=== PATIENT | male | born 1980 | race African-American/Black ===

== ENCOUNTER 2017-04-21 11:46 | Emergency (ER) | payer BC ==
[~2017-04-21] VITALS: Ht 177.8 cm; Wt 76.7 kg
[2017-04-21 12:15] VITALS: BP 123/73
[2017-04-21] MEDS ORDERED: IBUP-1027 PO (12:24)
--- NOTE | 2017-04-21 12:24 | PHYS DOC ---
Past Medical History Past Medical History: Diabetes-Type I Past Surgical History: No Surgical History Adult General Chief Complaint Chief Complaint: OTHER COMPLAINTS HPI HPI This is a pleasant 37-year-old -[place] male in known history of type I diabetes who admits he took his insulin last night but did not eat an adequate meal. EMS responded this morning to the home when he was hypoglycemic in an attempt to give him an IV bolus of D50 it accidentally infiltrated into the tissue of the tibial fossa on the right. EMS requested that the patient go to the emergency department for an evaluation of his soft tissue. he denies any numbness and tingling distal to the injury does complain of slight pain to the anterior portion of the anterior tibial fossa on the right that is actually improved patient denies any fevers chills or other symptoms. Review of Systems Review of Systems Constitutional: Denies fever or chills [] Respiratory: Denies cough or shortness of breath [] Cardiovascular: No additional information not addressed in HPI [] Musculoskeletal: Denies back pain or joint pain complains of slight localized swelling and pain to the anterior portion of the right forearm] Integument: Denies rash or skin lesions [] Neurologic: Denies headache, focal weakness or sensory changes [] All other systems were reviewed and found to be within normal limits, except as documented in this note. Allergies Allergies Allergies Coded Allergies Type Severity Reaction Last Updated Verified No Known Drug Allergies 04/21/17 No Physical Exam Physical Exam Vital signs recorded on the chart within normal limits Constitutional: Well developed, well nourished, no acute distress, non-toxic appearance. [] Cardiovascular:Heart rate regular rhythm, no murmur [] Lungs & Thorax: Bilateral breath sounds clear to auscultation [] Skin: Patient has brisk capillary refill +2, brisk peripheral pulses at the radial and ulnar artery, she has slight soft tissue swelling over the area of the antecubital fossa on the right with minimal soft tissue swelling no obvious signs of fluctuance or sialitis.: Extremities: No tenderness, no cyanosis, no clubbing, ROM intact, no edema. [] Neurologic: Alert and oriented X 3, normal motor function, normal sensory function, no focal deficits noted. [] Current Patient Data Lab Values Laboratory Tests Test 04/21/17 12:10 Glucose (Fingerstick) 268 mg/dL (70-99) H EKG EKG [] Radiology/Procedures Radiology/Procedures [] Course & Med Decision Making Course & Med Decision Making Pertinent Labs and Imaging studies reviewed. (See chart for details) []Presents with slight D50 fluid infiltration into the soft tissue of the right forearm. There is no obvious signs of soft tissue compartment syndrome, there is no evidence of soft tissue trauma damage or localized abscess. After consulting with pharmacy she denied both believe that infiltrate with D50 will not cause any soft tissue trauma other than localized pain. His pain is already improved. I will encourage him to use Tylenol Motrin for his discomfort. Impression: Soft tissue trauma from D50 infiltrate Dragon Disclaimer Dragon Disclaimer This electronic medical record was generated, in whole or in part, using a voice recognition dictation system. Departure Departure Impression: Primary Impression: Nontraumatic hematoma of soft tissue Disposition: HOME, SELF-CARE Patient Instructions: Contusion Additional Instructions: discharge: I've spoken with the patient and/or caregivers. I've explained the patient's condition, diagnosis and treatment plan based on information available to me at this time. I've answered the patient's and/or caregivers questions and addressed any concerns. The patient and/or caregivers have a good understanding the patient's diagnosis, condition and treatment plan as can be expected at this point. Vital signs have been stabilized. The patient's condition is stable for discharge from the emergency department. The patient will pursue further outpatient evaluation with her primary care provider or other designated consulting physician as outlined in the discharge instructions. Patient and/or caregivers are agreeable to this plan of care and follow-up instructions have been explained in detail. The patient and/or caregivers have received these instructions in written format and expressed understanding of these discharge instructions. The patient and her caregivers are aware that if any significant change in condition or worsening of symptoms should prompt him to immediately return to this of the closest emergency department. If an emergent department is not readily available I would encourage him to call 911. Scripts Ibuprofen (IBUPROFEN) 400 Mg Tablet 400 MG PO PRN Q6HRS Y for INFLAMMATION for 10 Days, TAB Prov: JOSESITO LATIF MD 04/21/17 JOSESITO LATIF MD Apr 21, 2017 12:24
== END 2017-04-21 12:30 | disposition home or self-care (01) ==
LOC: ER 11:46
DX: M79.81 Nontraumatic hematoma of soft tissue (principal); E10.9 Type 1 diabetes mellitus without complications; Z79.4 Long term (current) use of insulin
CPT/HCPCS: 82962; 99282; 99283

== ENCOUNTER 2017-07-27 08:14 | Emergency (ER) | payer BC ==
[2017-07-27] MEDS ORDERED: IV NORMAL SALINE 1000ML BAG 1,000 ML IV (08:30)
[2017-07-27] MEDS: ACETAMINOPHEN 325 MG TABLET. PO (08:32)
[2017-07-27 09:16] LABS: BILIRUBIN,URINE NEGATIVE (NEG); CLARITY,URINE CLEAR; GLUCOSE,URINE NEGATIVE (NEG); NITRITE,URINE NEGATIVE (NEG); PROTEIN,URINE NEGATIVE (NEG-TRACE)
[2017-07-27 09:34] LABS: COLOR,URINE YELLOW; SQUAMOUS EPITHELIAL CELL,UR MOD /LPF
[2017-07-27 09:35] LABS: BACTERIA,URINE FEW /HPF (0-FEW); RBC,URINE OCC /HPF (0-2)
[2017-07-27 11:07] LABS: ADD MAN DIFF? NO
[2017-07-27 11:10] LABS: BASO % 1 % (0-3); EOS # 0.1 x10^3/uL (0.0-0.7); EOS % 2 % (0-3); HEMATOCRIT 46.2 % (39.0-53.0); HEMOGLOBIN 15.6 g/dL (13.0-17.5); LYMPH # 0.6 x10^3/uL (1.0-4.8); LYMPH % 11 % (24-48); MEAN CORPUSCULAR HEMOGLOBIN 31 pg (25-35); MEAN CORPUSCULAR HGB CONC 34 g/dL (31-37); MEAN CORPUSCULAR VOLUME 91 fL (79-100); MONO # 0.6 x10^3/uL (0.0-1.1); MONO % 12 % (0-9); NEUT % 74 % (31-73); PLATELET COUNT 187 x10^3/uL (140-400); RED BLOOD COUNT 5.11 x10^6/uL (4.30-5.70); RED CELL DISTRIBUTION WIDTH 14.3 % (11.5-14.5); WHITE BLOOD COUNT 5.4 x10^3/uL (4.0-11.0)
[2017-07-27 11:20] LABS: ANION GAP 10 (6-14); BLOOD UREA NITROGEN 16 mg/dL (8-26); CALCIUM 9.7 mg/dL (8.5-10.1); CARBON DIOXIDE 25 mmol/L (21-32); CHLORIDE 96 mmol/L (98-107); CREATININE 1.1 mg/dL (0.7-1.3); GFR 91.6; GLUCOSE 278 mg/dL (70-99); POTASSIUM 4.6 mmol/L (3.5-5.1); SODIUM 131 mmol/L (136-145)
[2017-07-27 11:25] LABS: ALBUMIN 3.4 g/dL (3.4-5.0); ALK PHOS 448 U/L (46-116); ALT (SGPT) 80 U/L (16-63); AST (SGOT) 76 U/L (15-37); DIRECT BILIRUBIN 0.3 mg/dL (0.0-0.2); LIPASE 93 U/L (73-393); TOTAL BILIRUBIN 0.7 mg/dL (0.2-1.0); TOTAL PROTEIN 9.3 g/dL (6.4-8.2)
[2017-07-27 11:27] LABS: TROPONINI < 0.017 ng/mL (0.000-0.055)
[2017-07-27 12:12] LABS: POC GLUCOSE 73 mg/dL (70-99)
[2017-07-27 12:12] LABS: POC GLUCOSE 145 mg/dL (70-99)
== END 2017-07-27 12:02 | disposition home or self-care (01) ==
LOC: ER 08:14
DX: E10.649 Type 1 diabetes mellitus with hypoglycemia without coma (principal); Z79.4 Long term (current) use of insulin
CPT/HCPCS: 36415; 70450; 80048; 80076; 81001; 82962; 83690; 84484; 85025; 87086; 99285-25

== ENCOUNTER 2018-07-10 09:35 | Emergency (ER) | payer SELFPAY ==
[~2018-07-10] VITALS: Ht 177.8 cm; Wt 77.1 kg
[~2018-07-10 09:35] MED LIST: IBUP-1027 PO
[2018-07-10] MEDS ORDERED: IBUPROFEN 600 MG TABLET. PO ONE (10:15)
[2018-07-10 10:20] LABS: BASO % 0 % (0-3); EOS # 0.8 x10^3/uL (0.0-0.7); EOS % 12 % (0-3); HEMATOCRIT 43.2 % (39.0-53.0); HEMOGLOBIN 14.2 g/dL (13.0-17.5); LYMPH # 1.7 x10^3/uL (1.0-4.8); LYMPH % 25 % (24-48); MEAN CORPUSCULAR HEMOGLOBIN 31 pg (25-35); MEAN CORPUSCULAR HGB CONC 33 g/dL (31-37); MEAN CORPUSCULAR VOLUME 95 fL (79-100); MONO # 0.6 x10^3/uL (0.0-1.1); MONO % 9 % (0-9); NEUT # 3.6 x10^3uL (1.8-7.7); NEUT % 54 % (31-73); PLATELET COUNT 139 x10^3/uL (140-400); RED BLOOD COUNT 4.58 x10^6/uL (4.30-5.70); RED CELL DISTRIBUTION WIDTH 14.1 % (11.5-14.5); WHITE BLOOD COUNT 6.7 x10^3/uL (4.0-11.0)
[2018-07-10 10:24] LABS: BILIRUBIN,URINE NEGATIVE (NEG); CLARITY,URINE CLEAR; COLOR,URINE YELLOW; NITRITE,URINE NEGATIVE (NEG); PROTEIN,URINE NEGATIVE (NEG-TRACE); UROBILINOGEN,URINE 0.2 mg/dL (0.2 mg/dL)
[2018-07-10 10:50] LABS: SQUAMOUS EPITHELIAL CELL,UR FEW /LPF
[2018-07-10 10:51] LABS: BACTERIA,URINE FEW /HPF (0-FEW); RBC,URINE OCC /HPF (0-2)
[2018-07-10 10:56] LABS: CALCIUM 8.5 mg/dL (8.5-10.1); CREATININE 1.1 mg/dL (0.7-1.3); GFR 91.1; POTASSIUM 3.2 mmol/L (3.5-5.1)
[2018-07-10 11:02] LABS: ALBUMIN 3.2 g/dL (3.4-5.0); ALBUMIN/GLOBULIN RATIO 0.8 (1.0-1.7); TOTAL BILIRUBIN 0.4 mg/dL (0.2-1.0); TOTAL PROTEIN 7.2 g/dL (6.4-8.2)
--- NOTE | 2018-07-10 12:40 | PHYS DOC ---
Past Medical History Past Medical History: Diabetes-Type I Past Surgical History: No Surgical History Alcohol Use: None Drug Use: None Adult General Chief Complaint Chief Complaint: HYPOGLYCEMIA HPI HPI Patient is a 38-year-old male who presents via EMS with report of low blood sugar. Medics indicate that when they checked his blood sugar it was 30 at home. Patient reportedly was altered which was why EMS was called. They state that he was initially combative and they had difficulty in establishing IV access. They state that patient was given 2 A of D50 and blood sugar finally came up to 54. Upon arrival, patient states that is left upper arm is painful and states that it is swollen. Medics indicate that IV might have infiltrated. Review of Systems Review of Systems Constitutional: Denies fever or chills [] Respiratory: Denies cough or shortness of breath [] Cardiovascular: No additional information not addressed in HPI [] GI: Denies abdominal pain, nausea, vomiting or diarrhea [] Musculoskeletal: Complains of left upper arm pain [] Integument: Denies rash or skin lesions [] Neurologic: Denies headache, focal weakness or sensory changes [] All other systems were reviewed and found to be within normal limits, except as documented in this note. Current Medications Current Medications Current Medications Medications (Trade) Dose Ordered Sig/Marge Start Time Stop Time Status Last Admin Dose Admin Ibuprofen (Motrin) 600 mg 1X ONCE 07/10/18 10:15 07/10/18 10:16 DC 07/10/18 10:20 600 MG Allergies Allergies Allergies Coded Allergies Type Severity Reaction Last Updated Verified No Known Drug Allergies 04/21/17 No Physical Exam Physical Exam Constitutional: Well developed, well nourished, no acute distress, non-toxic appearance. [] HENT: Normocephalic, atraumatic, bilateral external ears normal, oropharynx moist, no oral exudates, nose normal. [] Eyes: PERRLA, EOMI, conjunctiva normal, no discharge. [] Neck: Normal range of motion, no tenderness, supple, no stridor. [] Cardiovascular: Regular rate and rhythm[] Lungs & Thorax: Bilateral breath sounds clear to auscultation [] Abdomen: Bowel sounds normal, soft, no tenderness. [] Skin: Warm, dry, no erythema, no rash. [] Extremities: Left upper arm demonstrates swelling, induration and tenderness just proximal to the IV site, consistent with infiltrated IV. [] Neurologic: Alert and oriented X 3, no focal deficits noted. [] Current Patient Data Vital Signs Vital Signs Date Time Temp Pulse Resp B/P (MAP) Pulse Ox O2 Delivery O2 Flow Rate FiO2 07/10/18 09:35 97.6 55 20 134/81 (98) 99 Room Air 97.6 Lab Values Laboratory Tests Test 07/10/18 09:50 07/10/18 10:00 07/10/18 12:22 Urine Collection Type Unknown Urine Color Yellow Urine Clarity Clear Urine pH 6.0 Urine Specific [place] 1.020 Urine Protein Negative mg/dL (NEG-TRACE) Urine Glucose (UA) >=1000 mg/dL (NEG) Urine Ketones (Stick) Negative mg/dL (NEG) Urine Blood Negative (NEG) Urine Nitrite Negative (NEG) Urine Bilirubin Negative (NEG) Urine Urobilinogen Dipstick 0.2 mg/dL (0.2 mg/dL) Urine Leukocyte Esterase Negative (NEG) Urine RBC Occ /HPF (0-2) Urine WBC 5-10 /HPF (0-4) Urine Squamous Epithelial Cells Few /LPF Urine Bacteria Few /HPF (0-FEW) Urine Mucus Marked /LPF White Blood Count 6.7 x10^3/uL (4.0-11.0) Red Blood Count 4.58 x10^6/uL (4.30-5.70) Hemoglobin 14.2 g/dL (13.0-17.5) Hematocrit 43.2 % (39.0-53.0) Mean Corpuscular Volume 95 fL (79-100) Mean Corpuscular Hemoglobin 31 pg (25-35) Mean Corpuscular Hemoglobin Concent 33 g/dL (31-37) Red Cell Distribution Width 14.1 % (11.5-14.5) Platelet Count 139 x10^3/uL (140-400) L Neutrophils (%) (Auto) 54 % (31-73) Lymphocytes (%) (Auto) 25 % (24-48) Monocytes (%) (Auto) 9 % (0-9) Eosinophils (%) (Auto) 12 % (0-3) H Basophils (%) (Auto) 0 % (0-3) Neutrophils # (Auto) 3.6 x10^3uL (1.8-7.7) Lymphocytes # (Auto) 1.7 x10^3/uL (1.0-4.8) Monocytes # (Auto) 0.6 x10^3/uL (0.0-1.1) Eosinophils # (Auto) 0.8 x10^3/uL (0.0-0.7) H Basophils # (Auto) 0.0 x10^3/uL (0.0-0.2) Sodium Level 145 mmol/L (136-145) Potassium Level 3.2 mmol/L (3.5-5.1) L Chloride Level 106 mmol/L (98-107) Carbon Dioxide Level 30 mmol/L (21-32) Anion Gap 9 (6-14) Blood Urea Nitrogen 9 mg/dL (8-26) Creatinine 1.1 mg/dL (0.7-1.3) Estimated GFR (Cockcroft-Gault) 91.1 BUN/Creatinine Ratio 8 (6-20) Glucose Level 70 mg/dL (70-99) Calcium Level 8.5 mg/dL (8.5-10.1) Total Bilirubin 0.4 mg/dL (0.2-1.0) Aspartate Amino Transferase (AST) 40 U/L (15-37) H Alanine Aminotransferase (ALT) 44 U/L (16-63) Alkaline Phosphatase 108 U/L (46-116) Total Protein 7.2 g/dL (6.4-8.2) Albumin 3.2 g/dL (3.4-5.0) L Albumin/Globulin Ratio 0.8 (1.0-1.7) L Glucose (Fingerstick) 219 mg/dL (70-99) H Laboratory Tests 07/10/18 10:00 Laboratory Tests 07/10/18 10:00 EKG EKG [] Radiology/Procedures Radiology/Procedures [] Course & Med Decision Making Course & Med Decision Making Pertinent Labs and Imaging studies reviewed. (See chart for details) [] Dragon Disclaimer Dragon Disclaimer This electronic medical record was generated, in whole or in part, using a voice recognition dictation system. Departure Departure Impression: Primary Impression: Hypoglycemia Disposition: HOME, SELF-CARE Condition: STABLE Referrals: UNKNOWN PCP NAME (PCP) Patient Instructions: Hypoglycemia (Low Blood Sugar) MAYA OCONNOR Jr. DO Jul 10, 2018 12:40
[2018-07-10 13:12] VITALS: BP 137/71
== END 2018-07-10 13:51 | disposition home or self-care (01) ==
LOC: ER 09:35
DX: E10.649 Type 1 diabetes mellitus with hypoglycemia without coma (principal); M79.622 Pain in left upper arm
CPT/HCPCS: 36415; 80053; 81001; 82962; 85025; 87086; 99284

== ENCOUNTER 2021-06-02 22:08 | Emergency (ER) | payer SELFPAY ==
[~2021-06-02] VITALS: Ht 177.8 cm; Wt 81.0 kg
[2021-06-02 22:31] LABS: HEMATOCRIT 40.8 % (39.0-53.0); HEMOGLOBIN 13.5 g/dL (13.0-17.5); RED BLOOD COUNT 4.3 x10^6/uL (4.30-5.70); RED CELL DISTRIBUTION WIDTH 14.5 % (11.5-14.5)
[2021-06-02 22:42] LABS: CALCIUM 8.4 mg/dL (8.5-10.1); GFR 100.1; POTASSIUM 3.6 mmol/L (3.5-5.1)
--- NOTE | 2021-06-02 23:08 | PHYS DOC ---
Past Medical History Past Medical History: Diabetes-Type I Past Surgical History: No Surgical History Smoking Status: Former Smoker Alcohol Use: None Drug Use: None Adult General Chief Complaint Chief Complaint: HYPOGLYCEMIA HPI HPI Patient is a 41-year-old male who is a type I diabetic. He is otherwise healthy. He evidently took his mealtime short acting insulin but then fell asleep before eating dinner. Family were unable to arouse him and called EMS. Upon EMS arrival blood glucose was in the 20s. They were unable to establish IV access and so gave intramuscular glucagon with good response. Patient awoke and was alert and oriented upon arrival to the emergency department. He denied any complaints but was able to relate the story above. States he has had this happen any number of times. Denies pain anywhere. He was given multiple orange and apple juices, and then fed a full meal tray. Basic labs were drawn and he was observed for an extended period here in the emergency department. Upon reassessment patient feels completely back to baseline. Blood glucose is 200+. In view of reassuring work-up and resolution of hypoglycemia, will discharge home to follow-up closely with primary care. Patient understands that if he feels worse instead of better or develops other new symptoms of concern that he should return to the emergency department immediately for reevaluation. All questions were answered. Review of Systems Review of Systems A 12 point review of systems was completed and was negative except where noted in HPI above. Allergies Allergies Allergies Coded Allergies Type Severity Reaction Last Updated Verified No Known Drug Allergies 04/21/17 No Physical Exam Physical Exam 41-year-old male appearing nontoxic and in no acute distress. Head is normocephalic and atraumatic. Neck is supple and nontender. Oropharynx is moist. Lungs are clear to auscultation at all stations. There is a normal S1 and S2 without rubs or gallops and capillary refill is appropriate, less than 2 seconds globally. Abdomen is soft, nontender and nondistended. Skin is warm and dry without cyanosis, clubbing or edema. Psychiatrically, the patient demonstrates appropriate mood and affect and is alert. Neurologically, cranial nerves II through XII are intact and there are no lateralizing deficits seen. Speech is normal. Language is normal. Coordination is normal. There is no dysmetria [id number] or [id number] bilaterally. Strength is 5 out of 5 at all joints of bilateral upper and lower extremities. Sensation is intact to light touch in bilateral upper and lower extremities. Patient ambulates with a narrow, steady, non-ataxic gait here in the emergency department and is alert and oriented x4. Evaluation of the extremities reveals BUEs and BLEs neurovascularly intact with strength 5 out of 5, sensation intact to light touch in all nerve distributions, radial, DP and PT pulses 2+ and equal bilaterally, capillary refill less than 2 seconds, hands and feet warm and well-perfused. Current Patient Data Lab Values Laboratory Tests Test 06/02/21 22:12 06/02/21 22:15 Glucose (Fingerstick) 83 mg/dL (70-99) White Blood Count 7.0 x10^3/uL (4.0-11.0) Red Blood Count 4.30 x10^6/uL (4.30-5.70) Hemoglobin 13.5 g/dL (13.0-17.5) Hematocrit 40.8 % (39.0-53.0) Mean Corpuscular Volume 95 fL (79-100) Mean Corpuscular Hemoglobin 32 pg (25-35) Mean Corpuscular Hemoglobin Concent 33 g/dL (31-37) Red Cell Distribution Width 14.5 % (11.5-14.5) Platelet Count 155 x10^3/uL (140-400) Sodium Level 141 mmol/L (136-145) Potassium Level 3.6 mmol/L (3.5-5.1) Chloride Level 103 mmol/L (98-107) Carbon Dioxide Level 32 mmol/L (21-32) Anion Gap 6 (6-14) Blood Urea Nitrogen 14 mg/dL (8-26) Creatinine 1.0 mg/dL (0.7-1.3) Estimated GFR (Cockcroft-Gault) 100.1 Glucose Level 92 mg/dL (70-99) Calcium Level 8.4 mg/dL (8.5-10.1) L Laboratory Tests 06/02/21 22:15 Laboratory Tests 06/02/21 22:15 EKG EKG [] Radiology/Procedures Radiology/Procedures [] Course & Med Decision Making Course & Med Decision Making Hypoglycemia resolved as per narrative above. Discharging home at this time. Dragon Disclaimer Dragon Disclaimer This electronic medical record was generated, in whole or in part, using a voice recognition dictation system. Departure Departure Impression: Primary Impression: Type 1 diabetes mellitus with hypoglycemia Disposition: HOME / SELF CARE / HOMELESS Condition: GOOD Patient Instructions: Hypoglycemia (Low Blood Sugar) Additional Instructions: Follow-up closely with your primary care doctor in the office in the next 1 to 2 days for reevaluation of your symptoms and a discussion of next best steps in care. Drink plenty of fluids and get plenty of rest. Make sure to eat immediately after taking your mealtime insulin and monitor your blood sugars carefully. Return to the emergency department right away for worsening symptoms of any kind or with any other new symptoms of concern. Problem Qualifiers Primary Impression: Type 1 diabetes mellitus with hypoglycemia Diabetes mellitus complication detail: without coma Qualified Codes: E 10.649 - Type 1 diabetes mellitus with hypoglycemia without coma ANGEL CHEN MD Jun 02, 2021 23:08
== END 2021-06-02 23:12 | disposition home or self-care (01) ==
LOC: ER 22:08
DX: E10.649 Type 1 diabetes mellitus with hypoglycemia without coma (principal); Z87.891 Personal history of nicotine dependence
CPT/HCPCS: 36415; 80048; 82962; 85027; 99283